=== PATIENT | female | born 1995 | race Caucasian/White ===

== ENCOUNTER 2017-02-12 09:01 | Observation (INO) | payer MEDICAID ==
[~2017-02-12] VITALS: Ht 162.6 cm; Wt 86.2 kg
[2017-02-17] MEDS ORDERED: PREN-134 PO (11:05)
[2017-02-17 11:08] VITALS: BP 108/67
== END 2017-02-17 11:35 | disposition home or self-care (01) ==
LOC: 4S 02-17 10:50
PROVIDERS: ADMIT Obstetrics & Gynecology; ATTEND Obstetrics & Gynecology
DX: O48.0 Post-term pregnancy (principal); Z3A.40 40 weeks gestation of pregnancy
CPT/HCPCS: 59025; G0378

== ENCOUNTER 2017-02-18 08:50 | Observation (INO) | payer MEDICAID ==
[~2017-02-18 08:50] MED LIST: PREN-134 PO
== END 2017-02-18 10:20 | disposition home or self-care (01) ==
LOC: 4S 08:50
PROVIDERS: ADMIT Obstetrics & Gynecology; ATTEND Obstetrics & Gynecology
DX: O62.9 Abnormality of forces of labor, unspecified (principal); O48.0 Post-term pregnancy; O26.893 Other specified pregnancy related conditions, third trimester; R10.30 Lower abdominal pain, unspecified; Z3A.40 40 weeks gestation of pregnancy
CPT/HCPCS: 59025; G0378